=== PATIENT | male | born 2000 | race Caucasian/White ===

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

== ENCOUNTER 2023-07-02 10:24 | Outpatient (AMB) | payer OTHER, SELFPAY ==
--- NOTE | 2023-07-02 10:30 | AM.OFFWIN_ITS ---
Intake Vital Signs 07/02/23 10:31 Height 5 ft 8 in Weight 143 lb 2 oz BMI 21.8 BP 100/60 Blood Pressure Location Lt brachial Position Sitting Pulse 87 Pulse Source Pulse Oximeter Pulse Oximetry (%) 98 Oxygen Delivery Method Room Air Intake Visit Reasons: Swollen eyes ,ear pain Intake Note: Patient is here today for bilateral swelling of the eyes, left was worse, watery as well with bilateral ear pain, body aches, no sore throat. OTC was tired with little relief, covid test was negative. 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 Mom reports history of chronic and recurrent ear infections that is managed by ENT. He has had TM tubes in the past. He may need surgery on the right TM but this still to be determined. 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 He has not used any at home eye drops her treatments. Reports that the eyes felt much better after coming home and lying down and taking a nap yesterday. He does not wear glasses or contacts. Reports he has had no loss of vision. He denies any use of a laser anything that would cause flash burn. He has not up-to-date on his flu shot [facility] Social History (System 01/13/21 @ 11:43 by Leander Ponce) Patient Tobacco Use Status: Never used Tobacco Review of Systems Const All systems reviewed & are unremarkable except as noted in HPI and below Physical Exam Vital Signs: Last Vital Signs Pulse 87 07/02/23 10:31 BP 100/60 07/02/23 10:31 Pulse Ox 98 07/02/23 10:31 Oxygen Delivery Method Room Air 07/02/23 10:31 BMI result Body Mass Index 21.8 Const Other: Awake alert oriented accompanied by mom Sclera and conjunctiva clear bilat, left eye with dried clear drainage noted at inner canthus. Very minimal upper lid edema on the left. No edema of right lid. Denies any periorbital tenderness. TM intact bilat. Right TM with a mucoid effusion, bulging, injection, loss of landmarks. Left TM with mild clouding, no erythema or bulging. Nares with clear nasal discharge, turbinates are erythematous left more than right Pharynx with PND no exudate No cervical adenopathy LS clear to auscultation bilat. Occasional dry cough noted without distress Rrr Assessment & Plan Assessment & Plan (1) Otitis media: Code(s): H66.90 - Otitis media, unspecified, unspecified ear Qualifiers: Otitis media type: mucoid Chronicity: acute Laterality: right Qualified Code(s): H65.111 - Acute and subacute allergic otitis media (mucoid) (sanguinous) (serous), right ear Plan: . (2) Conjunctivitis: Code(s): H10.9 - Unspecified conjunctivitis Qualifiers: Conjunctivitis type: acute Acute conjunctivitis type: bacterial Laterality: bilateral Qualified Code(s): H10.33 - Unspecified acute conjunctivitis, bilateral Plan: . Plan I will administer p.o. antibiotics to cover for his otitis media. The mom reports that he can not take pills does better with liquids therefore the liquid was sent in to the local pharmacy. In regards to his eyes I am not really sure if this is a bacterial conjunctivitis or if this is something related to foreign body. There is nothing obvious in regards to foreign body. There is no photophobia. I will treat him with topical erythromycin and have explained to his mom and himself why. 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 Also recommended that he follow up with the ENT specialist perhaps request referral for allergy testing as this seems to be a chronic issue with his eyes and ears. This note is constructed using voice recognition software. While every effort has been made to ensure accuracy in real estate leasing agent, still errors may have been included Sometimes, these errors may affect the content or meaning of the given sentence . Total time spent caring for the patient today was 42 minutes. This includes time spent before the visit reviewing the chart, time spent during the visit, and time spent after the visit on documentation Medications: New erythromycin 0.5 inches ophthalmic (eye) BID 5 days 3.5 grams 0RF amoxicillin-pot clavulanate 400-57 mg/5 mL 10 mL PO Q12H 10 days 200 mL 0RF Coding Level of Care Code Est Pt Level 5 (66906) Diagnoses Acute mucoid otitis media of right ear H65.111 Otitis media type: mucoid Chronicity: acute Laterality: right Acute bacterial conjunctivitis of both eyes H10.33 Conjunctivitis type: acute Acute conjunctivitis type: bacterial Laterality: bilateral
[2023-07-02 10:31] VITALS: BP 100/60; PULSE 87; O2SAT 98; BMI 21.8
== END 2023-07-02 12:45 | disposition home or self-care (01) ==
PROVIDERS: PCP Pediatrics Adolescent Medicine; Visit Provider Nurse Practitioner Family
DX: H65.111 Acute and subacute allergic otitis media (mucoid) (sanguinous) (serous), right ear (principal); H10.33 Unspecified acute conjunctivitis, bilateral
CPT/HCPCS: 99215